=== PATIENT | male | born 1980 | race Caucasian/White ===

== ENCOUNTER 2016-10-05 18:37 | Emergency (ER) | payer MEDICAID ==
[2016-10-05 18:53] VITALS: BP 169/117; PULSE 93; RESP 18; TEMP 98.4; O2SAT 96
[2016-10-05] MEDS ORDERED: KETOROLAC 30 MG/1 ML SDV IM ONE (18:59)
[2016-10-05] MEDS ORDERED: DEXAMETHASONE 4 MG TAB PO ONE (19:00)
[2016-10-05] MEDS ORDERED: POLYMYXIN B SULFATE/TMP 10 ML OPHT.BTL ONE (19:06)
--- NOTE | 2016-10-05 19:07 | UCPHY ---
H & P Time Seen by Provider: 10/05/16 18:50 Patient Type: New HPI/ROS: HPI Cough, congestion, sore throat, right eye irritation. 28-year-old male by private vehicle. He complains of an ongoing cough with nasal congestion and chest congestion for 2-3 weeks. He also complains of a sore throat which has been persistent for about a week. Was seen in the emergency department [facility] a few days ago. He did have a strep test done at that time but was not told the result. He was not placed on antibiotics. He presents to the emergency department tonight complaining of continued cough and congestion, sore throat and since last night right eye inflammation with a crusty discharge that he notices in the morning. There is no history of ocular trauma. He does not wear contact lenses. ROS: Constitutional: As, no chills. No weakness. Eyes: No discharge. No changes in vision. ENT: As above. Respiratory: As above. No shortness of breath. Cardiac: No chest pain, no palpitations. Gastrointestinal: No abdominal pain, no vomiting, no diarrhea. Genitourinary: No hematuria. No dysuria or increased frequency with urination. Musculoskeletal: No back pain. No neck pain. No myalgias or arthralgias. Skin: No rashes. Neurological: No headache. No focal weakness or altered sensation. Past medical history: Cervical disc problems. Otherwise denies any significant past medical history. Social history: Nonsmoker. Here by himself. Physical Exam: General Appearance: Alert, no distress. This patient is responding to questions appropriately and in full sentences. This patient appears well- hydrated and well-nourished. Eyes: Pupils equal and round no pallor or injection. Mild lid edema erythema with scant watery purulent discharge right eye. ENT, Mouth: Mucous membranes are moist. Diffuse pharyngeal erythema with exudates on both tonsils, left side worse than right side. No asymmetry to suggest abscess. No stridor on auscultation of his neck. No voice changes. Respiratory: There are no retractions, lungs are clear to auscultation with good air movement bilaterally. Scant intermittent wheeze on exhalation upper lung [place]. No tachypnea. Cardiovascular: Regular rate and rhythm. No murmur. Neurological: Motor sensory function is grossly intact. Cranial nerves are normal. Gait is normal. Skin: Warm and dry, no rashes. Musculoskeletal: Neck is supple and nontender. No cervical, submental, submandibular lymphadenopathy. Extremities are symmetrical. All joints range without pain or impingement. Psychiatric: No agitation. No depression. Database: EKG: Imaging: Chest x-ray PA and lateral; the cardiac mediastinal silhouette is unremarkable. No evidence of infiltrate or pneumothorax. Probable bronchitis. No other acute cardiopulmonary disease process noted. Interpreted by me. Procedures: Emergency department course: Vital signs reviewed. He is moderately hypertensive. Afebrile. He does not have any contraindications to NSAIDs. No history of renal dysfunction. He was given 60 mg of IM Toradol in 12 mg of oral Decadron for his sore throat. Rapid strep obtained. He was given Polytrim eyedrops to the right eye for treatment of probable conjunctivitis. Chest x-ray will be obtained. 7:50 p.m., patient re-evaluated. Resting comfortably at this time. Results of his rapid strep and chest x-ray were discussed with him. He feels better. No difficulty swallowing. No stridor. He feels comfortable going home and I feel he is safe for discharge. I will prescribe a 1 time dose of Decadron, 8 mg, to be taken tomorrow. Conjunctivitis will be treated with Polytrim drops. He declines narcotic pain medications. Follow-up and return to emergency department precautions reviewed with him. All of his questions were answered. He was discharged in good condition. Differential Diagnosis: The differential diagnosis on this patient includes but is not limited to streptococcal pharyngitis, viral syndrome, mononucleosis, influenza. Tracheitis , epiglottitis, retropharyngeal abscess, peritonsillar abscess, pneumonia unlikely. This represents a partial list of diagnoses considered. These considerations are based on history, physical exam, past history, reassessment and diagnostic testing. Smoking Status: Never smoked Constitutional: Initial Vital Signs Temperature (C) 36.9 C 10/05/16 18:50 Heart Rate 93 10/05/16 18:50 Respiratory Rate 18 10/05/16 18:50 Blood Pressure 169/117 H 10/05/16 18:50 O2 Sat (%) 96 10/05/16 18:50 O2 Delivery Mode Room Air Allergies/Adverse Reactions: Penicillins Allergy (Verified 10/05/16 18:49) Home Medications: Medication Instructions Recorded Dexamethasone [Decadron 4 MG (RX)] 8 mg PO ONCE #2 tab 10/05/16 Flexeril 10/05/16 IBUPROFEN 10/05/16 Medical Decision Making - Data Points Laboratory Results: 10/05/16 10/05/16 Unknown 18:46 Group A Strep Screen NEGATIVE (NEGATIVE) Group A Strep DNA Pending Medications Given: Discontinued Medications Dexamethasone (Decadron) 12 mg PO EDNOW ONE Stop: 10/05/16 19:01 Last Admin: 10/05/16 19:16 Dose: 12 mg Ketorolac Tromethamine (Toradol) 60 mg IM EDNOW ONE Stop: 10/05/16 19:00 Last Admin: 10/05/16 19:16 Dose: 60 mg Departure - Departure Disposition: Home, Routine, Self-Care Clinical Impression: Pharyngitis, Upper respiratory infection, Conjunctivitis Condition: Good Instructions: Pharyngitis (ED), Upper Respiratory Infection (ED), Conjunctivitis (ED) Additional Instructions: Read and follow provided instructions. Follow-up with your primary care physician in 1-2 days for re-evaluation. Take medication as prescribed only. 1 time dose of Decadron, 8 mg, to be taken tomorrow evening. Polytrim ophthalmic drops. 1-2 drops to right eye every 3-4 hours while awake for 5-7 days. Return to the emergency department for worsening sore throat, difficulty breathing, worsening cough, high fever or other serious concerns. Referrals: NONE *PRIMARY CARE P,. [Primary Care Provider] - As per Instructions Prescriptions: Dexamethasone [Decadron 4 MG (RX)] 8 mg PO ONCE #2 tab - PQRS PQRS Measurement: Not applicable.
[2016-10-06] MEDS ORDERED: POLYMYXIN B SULFATE/TMP 10 ML OPHT.BTL RTEYE ONE (19:00)
== END 2016-10-05 20:09 | disposition home or self-care (01) ==
LOC: CED 18:37
DX: J02.9 Acute pharyngitis, unspecified (principal); H10.9 Unspecified conjunctivitis; I10 Essential (primary) hypertension
CPT/HCPCS: 71020-PO; 87880-PO; 96372-PO; 99203-PO; G0463-PO; J1885